=== PATIENT | female | born 1985 | race Caucasian/White ===

== ENCOUNTER → 2017-03-30 | Outpatient (CLI) | payer OTHER ==
[~2017-03-30] MED LIST: BACTRIM 400 MG-1 TAB PO; CEPHALEXIN500 M1 PO; COLESTID 1GM1 G PO; MOTRIN 600600 MG/TAB PO; NITRO-BID22 RC; PAMELOR50 MG PO; PERCOCET 325 MG1 TA2 PO; PROBIOTIC FORMU1 CAP PO; PROTONIX20 MG; PYRIDIUM 100MG100 MG PO; RECLIPSEN 0.151 TAB PO; TAZORAC 0.05% CR1 TU TP; TOPROL XL 25MG25 MG PO; YAZ PO; [UNRECOGNIZED DRUG - OTHER]
== END ==
LOC: COL.CARD 08:55
DX: G43.109 Migraine with aura, not intractable, without status migrainosus (principal); R42 Dizziness and giddiness
CPT/HCPCS: A9585

== ENCOUNTER → 2017-10-12 | Outpatient (CLI) | payer OTHER ==
[2017-10-12 08:53] LABS: COLLECTION METHOD CLEAN CATCH
[2017-10-12 09:07] LABS: PH 7 (5-8); SQUAMOUS EPITHELIAL None Seen /hpf; URINE APPEARANCE Clear; URINE BACTERIA None Seen /hpf; URINE BILIRUBIN Negative (NEGATIVE); URINE BLOOD Negative (NEGATIVE); URINE COLOR Straw; URINE GLUCOSE Negative (NEGATIVE); URINE KETONE Negative (NEGATIVE); URINE LEUKOCYTE ESTERASE Negative (NEGATIVE); URINE NITRATE Negative (NEGATIVE); URINE PROTEIN(semi-quant) Negative (NEGATIVE); URINE RBC 0-2 /hpf; URINE UROBILINOGEN Negative (NEGATIVE); URINE WBC 0-2 /hpf
== END ==
LOC: COL.LAB 08:27
PROVIDERS: Family Medicine
DX: R30.0 Dysuria (principal); R30.9 Painful micturition, unspecified

== ENCOUNTER → 2018-10-30 | Outpatient (CLI) | payer OTHER | LOC: COL.RAD 08:11 | DX: M06.4 Inflammatory polyarthropathy (principal) | CPT/HCPCS: A9503 ==